=== PATIENT | female | born 1990 | race Caucasian/White ===

== ENCOUNTER 2025-04-29 10:06 | Emergency (ER) | payer OTHER ==
[2025-04-29 10:14] VITALS: BP 119/76; PULSE 82; RESP 18; TEMP 98.1; BMI 27.4
[2025-04-29 10:55] LABS: ABSOLUTE IMMATURE GRANULOCYTES 0.01 x10^3/uL (0.0-0.031); BASOPHILS # 0.03 x10^3/uL (0.01-0.08); EOSINOPHIL % 0.3 % (0.7-5.8); EOSINOPHILS # 0.02 x10^3/uL (0.04-0.36); MCHC 32.8 g/dl (32.2-35.5); MEAN CELL VOLUME 95.5 fl (79.4-94.8); MEAN PLT VOLUME 10.3 fl (9.4-12.3); MONOCYTE # 0.37 x10^3/uL (0.24-0.86); MONOCYTE % 5.9 % (4.7-12.5); RDW 12.7 % (12.1-16.8)
[2025-04-29 11:01] LABS: URINE APPEARANCE CLEAR; URINE BILIRUBIN NEGATIVE (NEGATIVE); URINE COLOR YELLOW; URINE GLUCOSE (UA) NEGATIVE (NEGATIVE); URINE KETONE NEGATIVE (NEGATIVE)
[2025-04-29 11:02] LABS: URINE LEUK ESTERASE NEGATIVE (NEGATIVE); URINE NITRITE NEGATIVE (NEGATIVE); URINE PROTEIN NEGATIVE (NEGATIVE); URINE UROBILINOGEN 0.2 mg/dL (0.2-1.0)
[2025-04-29 11:17] LABS: GLUCOSE,RANDOM 95.0 mg/dL (74-106)
[2025-04-29 11:18] LABS: CO2 23.0 mmol/L (21-32)
[2025-04-29 11:22] LABS: CREATININE 0.7 mg/dL (0.55-1.3)
[2025-04-29 11:39] LABS: HCV DIAGNOSTIC IN-HOUSE W/RFLX NON-REACTIVE (NONREACTIVE)
[2025-04-29 11:40] LABS: HIV INTERPRETATION NEGATIVE (NEGATIVE)
== END 2025-04-29 12:20 | disposition home or self-care (01) ==
LOC: JER 10:06
DX: O09.519 Supervision of elderly primigravida, unspecified trimester (principal); O20.9 Hemorrhage in early pregnancy, unspecified; Z3A.00 Weeks of gestation of pregnancy not specified
CPT/HCPCS: 36415; 80048; 80175; 81003; 84702; 85025; 86803; 86850; 86900; 86901; 87086; 87389; 99283-25